=== PATIENT | female | born 1945 | race Caucasian/White ===

== ENCOUNTER 2017-12-26 14:32 | Observation (INO) | payer MEDICARE, OTHER ==
[~2017-12-26] VITALS: Ht 152.4 cm; Wt 72.6 kg
[~2017-12-26 14:32] MED LIST: AMLO1TAB53 PO; ASPI81TA31 PO; CALC-1197 PO; CLON-529 PO; FENO145T38 PO; FISH OIL 1,2001 EAC1 PO; LANS1COM PO; METF500T PO; PANT-47 PO; PIOG15TA8 PO; RED600TA PO; SPIR25TA3 PO; SYN0.075T PO
[2017-12-26 15:17] LABS: BASOPHILS # (AUTO) 0.1 X10'3 (0-0.2); BASOPHILS % (AUTO) 0.8 % (0-1); EOSINOPHILS # (AUTO) 0.2 X10'3 (0-0.9); EOSINOPHILS % (AUTO) 2.2 % (0-6); HEMATOCRIT 35.8 % (35.0-45.0); HEMOGLOBIN 12.4 g/dl (12.0-16.0); LYMPHOCYTES # (AUTO) 1.4 X10'3 (1.1-4.8); LYMPHOCYTES % (AUTO) 19.4 % (21-51); MEAN CORPUSCULAR HGB CONC 34.6 % (33.0-36.5); MEAN CORPUSCULAR VOLUME 83.7 FL (78-98); MEAN PLATELET VOLUME 8.4 FL (7.4-10.4); MONOCYTES # (AUTO) 0.6 X10'3 (0-0.9); MONOCYTES % (AUTO) 8.2 % (2-12); NEUTROPHILS # (AUTO) 5.1 X10'3 (1.8-7.7); NEUTROPHILS % (AUTO) 69.4 % (42-75); PLATELET COUNT 436 X10'3 (140-440); RED BLOOD COUNT 4.28 X10'6 (4.20-5.60); RED CELL DISTRIBUTION WIDTH 13.1 % (11.5-14.5); WHITE BLOOD COUNT 7.4 X10'3 (4.5-11.0)
[2017-12-26 15:27] LABS: INR 1.1 INR; PROTHROMBIN TIME 11.2 SECONDS (9.0-12.0)
[2017-12-26 15:35] LABS: ALANINE AMINOTRANSFERASE 32 U/L (12-78); ALBUMIN 3.9 G/DL (3.4-5.0); ALBUMIN/GLOBULIN RATIO 0.9 (1.1-1.5); ALKALINE PHOSPHATASE 33 IU/L (46-116); ANION GAP 9 (8-16); ASPARTATE AMINO TRANSFERASE 26 U/L (10-37); BILIRUBIN,TOTAL 0.6 MG/DL (0.1-1.0); BLOOD UREA NITROGEN 46 MG/DL (7-18); BUN/CREATININE RATIO 20.9 (6.6-38.0); CHLORIDE 100 MMOL/L (99-107); GLUCOSE 112 MG/DL (70-104); SODIUM 138 MMOL/L (135-145); TOTAL CARBON DIOXIDE 28.7 MMOL/L (24-32); TOTAL PROTEIN 8.1 G/DL (6.4-8.2); eGFR 22 ML/MIN
[2017-12-26 15:38] LABS: CALCIUM 13.2 MG/DL (8.5-10.1)
[2017-12-26 16:02] LABS: CLARITY,URINE CLOUDY (Clear); COLOR,URINE YELLOW (Yellow); GLUCOSE, URINE NEGATIVE (Neg); KETONES,URINE TRACE mg/dl (Neg); LEUKOCYTE ESTERASE ,URINE NEGATIVE (Neg); NITRITES, URINE NEGATIVE (Neg); OCCULT BLOOD,URINE NEGATIVE (Neg); PH,URINE 5.5 (4.8-8.0); PROTEIN,URINE 30 mg/dl (Neg); UROBILINOGEN,URINE 0.2 E.U/dL (0.2-1.0)
[2017-12-26 16:03] LABS: UA COLLECTION TYPE CLN CATCH MIDSTREAM
[2017-12-26 16:10] LABS: HYALINE CASTS >30 /LPF (NEGATIVE); SQUAMOUS EPITHELIAL CELL,UR MANY /LPF (FEW)
[2017-12-26 16:11] LABS: CAL OXALATE CRYSTALS 4+ /HPF (NEGATIVE)
[2017-12-26 16:16] LABS: BACTERIA,URINE 1+ /HPF (Neg)
[2017-12-26 16:17] LABS: RBC,URINE 0-2 /HPF (0-2); WBC,URINE 0-4 /HPF (0-4)
[2017-12-26] MEDS ORDERED: pantoprazole 40 MG vial IV ONE (19:35)
[2017-12-26] MEDS ORDERED: MESSAGE TO PHARMACY PO ONE (21:30)
[2017-12-26] MEDS ORDERED: dextrose ORAL solution 15 GM/59 ML bottle PO PRN ×2 (21:30)
[2017-12-26] MEDS ORDERED: glucagon, human recombinant 1mg kit SUBCUT PRN (21:30)
[2017-12-26] MEDS ORDERED: acetaminophen 325mg tablet PO PRN ×2 (21:30)
[2017-12-26] MEDS ORDERED: dextrose 50%-water 50ml dispensing syringe IV PRN ×2 (21:30)
[2017-12-26] MEDS ORDERED: ondansetron/PF 4mg/2ml inj IV PRN (21:30)
[2017-12-26] MEDS ORDERED: insulin Lispro (HumaLOG) vial - multi-dose SQ SCH (21:30)
[2017-12-26] MEDS: normal saline 1000ml 1,000 ML IV SCH (22:21)
[2017-12-26] MEDS: pantoprazole 40 MG vial IV SCH (22:21)
[2017-12-26 22:40] LABS: HEMOGLOBIN A1C 7.3 % (4.5-6.2)
[2017-12-27 02:00] VITALS: BP 94/65
[2017-12-27 05:00] VITALS: BP 169/49
[2017-12-27 06:16] LABS: BASOPHILS # (AUTO) 0.1 X10'3 (0-0.2); BASOPHILS % (AUTO) 1.3 % (0-1); EOSINOPHILS # (AUTO) 0.1 X10'3 (0-0.9); EOSINOPHILS % (AUTO) 2.2 % (0-6); HEMATOCRIT 33.1 % (35.0-45.0); HEMOGLOBIN 11.4 g/dl (12.0-16.0); LYMPHOCYTES # (AUTO) 1.8 X10'3 (1.1-4.8); LYMPHOCYTES % (AUTO) 33.7 % (21-51); MEAN CORPUSCULAR HEMOGLOBIN 28.6 PG (27.0-31.0); MEAN CORPUSCULAR HGB CONC 34.4 % (33.0-36.5); MEAN CORPUSCULAR VOLUME 83.1 FL (78-98); MEAN PLATELET VOLUME 8.5 FL (7.4-10.4); MONOCYTES # (AUTO) 0.6 X10'3 (0-0.9); MONOCYTES % (AUTO) 11.3 % (2-12); NEUTROPHILS # (AUTO) 2.8 X10'3 (1.8-7.7); NEUTROPHILS % (AUTO) 51.5 % (42-75); PLATELET COUNT 362 X10'3 (140-440); RED BLOOD COUNT 3.99 X10'6 (4.20-5.60); WHITE BLOOD COUNT 5.3 X10'3 (4.5-11.0)
[2017-12-27 06:35] LABS: ALBUMIN 3.4 G/DL (3.4-5.0); ANION GAP 7 (8-16); BLOOD UREA NITROGEN 45 MG/DL (7-18); BUN/CREATININE RATIO 24.2 (6.6-38.0); CALCIUM 11.4 MG/DL (8.5-10.1); CHLORIDE 105 MMOL/L (99-107); CREATININE 1.86 MG/DL (0.40-0.90); GLUCOSE 96 MG/DL (70-104); MAGNESIUM 1.2 MG/DL (1.5-2.4); PHOSPHORUS 2.8 MG/DL (2.3-4.5); POTASSIUM 4.9 MMOL/L (3.5-5.1); SODIUM 140 MMOL/L (135-145); TOTAL CARBON DIOXIDE 27.8 MMOL/L (24-32); eGFR 26 ML/MIN
[2017-12-27] MEDS: levoTHYROXINE 75mcg tablet PO SCH (08:10)
[2017-12-27] MEDS: pantoprazole 40 MG vial IV SCH (08:10)
[2017-12-27 08:20] LABS: PARATHYROID HORMONE < 3.0 PG/ML (11-67)
[2017-12-27] MEDS ORDERED: potassium Cl 20 mEq SR tablet PO PRN ×2 (08:20)
[2017-12-27] MEDS ORDERED: HYDROchlorothiazide 25mg tablet PO SCH (08:41)
[2017-12-27] MEDS: amLODIPine 5mg tablet PO SCH (09:42)
[2017-12-27] MEDS: magnesium Cl slow-release 64mg tablet PO PRN ×2 (09:43→20:46)
[2017-12-27 10:00] VITALS: BP 157/57
[2017-12-27] MEDS: normal saline 1000ml 1,000 ML IV SCH (17:20)
[2017-12-27 18:00] VITALS: BP 163/71
[2017-12-27] MEDS: cloNIDine 0.1 mg tablet PO SCH (20:40)
[2017-12-27] MEDS: pantoprazole 40mg Tablet.DR PO SCH (20:41)
[2017-12-27] MEDS ORDERED: insulin glargine (Lantus) pen - multi-dose SQ SCH (21:00)
[2017-12-27 22:00] VITALS: BP 188/65
[2017-12-28] MEDS: normal saline 1000ml 1,000 ML IV SCH (01:39)
[2017-12-28 05:00] VITALS: BP 152/59
[2017-12-28 06:42] LABS: BASOPHILS # (AUTO) 0.1 X10'3 (0-0.2); BASOPHILS % (AUTO) 0.9 % (0-1); EOSINOPHILS # (AUTO) 0.2 X10'3 (0-0.9); EOSINOPHILS % (AUTO) 3.9 % (0-6); HEMATOCRIT 35.7 % (35.0-45.0); HEMOGLOBIN 12.2 g/dl (12.0-16.0); LYMPHOCYTES # (AUTO) 2.1 X10'3 (1.1-4.8); LYMPHOCYTES % (AUTO) 33.3 % (21-51); MEAN CORPUSCULAR HEMOGLOBIN 28.7 PG (27.0-31.0); MEAN CORPUSCULAR HGB CONC 34.2 % (33.0-36.5); MEAN CORPUSCULAR VOLUME 83.9 FL (78-98); MEAN PLATELET VOLUME 8.7 FL (7.4-10.4); MONOCYTES # (AUTO) 0.6 X10'3 (0-0.9); MONOCYTES % (AUTO) 9.5 % (2-12); NEUTROPHILS # (AUTO) 3.2 X10'3 (1.8-7.7); NEUTROPHILS % (AUTO) 52.4 % (42-75); PLATELET COUNT 400 X10'3 (140-440); RED BLOOD COUNT 4.25 X10'6 (4.20-5.60); RED CELL DISTRIBUTION WIDTH 12.9 % (11.5-14.5); WHITE BLOOD COUNT 6.2 X10'3 (4.5-11.0)
[2017-12-28 07:09] LABS: ALBUMIN 3.6 G/DL (3.4-5.0); ANION GAP 9 (8-16); BLOOD UREA NITROGEN 34 MG/DL (7-18); BUN/CREATININE RATIO 21.4 (6.6-38.0); CALCIUM 9.7 MG/DL (8.5-10.1); CHLORIDE 107 MMOL/L (99-107); CREATININE 1.59 MG/DL (0.40-0.90); GLUCOSE 114 MG/DL (70-104); MAGNESIUM 1.3 MG/DL (1.5-2.4); PHOSPHORUS 2.2 MG/DL (2.3-4.5); POTASSIUM 4.3 MMOL/L (3.5-5.1); SODIUM 142 MMOL/L (135-145); TOTAL CARBON DIOXIDE 26.2 MMOL/L (24-32); eGFR 32 ML/MIN
[2017-12-28] MEDS ORDERED: AMLODIPINE PO SCH (08:00)
[2017-12-28] MEDS ORDERED: furosemide 20 MG/2 ML vial IV SCH (08:00)
[2017-12-28] MEDS ORDERED: aspirin 81mg tab.chew PO SCH (08:00)
[2017-12-28] MEDS ORDERED: fenofibrate 145mg tablet PO SCH (08:00)
[2017-12-28] MEDS ORDERED: HCTZ PO SCH (08:00)
[2017-12-28] MEDS ORDERED: VALSARTAN PO SCH (08:00)
[2017-12-28] MEDS: levoTHYROXINE 75mcg tablet PO SCH (08:01)
[2017-12-28] MEDS: pantoprazole 40mg Tablet.DR PO SCH (08:01)
[2017-12-28] MEDS: amLODIPine 5mg tablet PO SCH (08:01)
[2017-12-28] MEDS: cloNIDine 0.1 mg tablet PO SCH (08:01)
[2017-12-28] MEDS: magnesium Cl slow-release 64mg tablet PO PRN (08:02)
[2017-12-28 10:00] VITALS: BP 105/42
[2017-12-28] MEDS ORDERED: pneumococcal 23-VAL P-sac vacc 25 mcg/0.5ml vial IMVAC ONE (10:00)
[2017-12-28] MEDS ORDERED: DIO160T PO (10:40)
[2017-12-28] MEDS ORDERED: PANT40TA4 PO (10:40)
[2017-12-28] MEDS ORDERED: AMLO5TAB16 PO (10:40)
[2017-12-28] MEDS ORDERED: MAGN500C16 PO (10:43)
== END 2017-12-28 12:00 | disposition home or self-care (01) ==
LOC: ER 14:33 → ED HOLD 21:29 → ORTHO 4S 12-27 01:55
PROVIDERS: ADMIT Family Medicine; ATTEND Internal Medicine
DX: K27.9 Peptic ulcer, site unspecified, unspecified as acute or chronic, without hemorrhage or perforation (principal); R10.13 Epigastric pain; E03.9 Hypothyroidism, unspecified; E83.52 Hypercalcemia; I12.9 Hypertensive chronic kidney disease with stage 1 through stage 4 chronic kidney disease, or unspecified chronic kidney disease; E11.22 Type 2 diabetes mellitus with diabetic chronic kidney disease; N18.4 Chronic kidney disease, stage 4 (severe); E78.5 Hyperlipidemia, unspecified; E78.00 Pure hypercholesterolemia, unspecified; Z23 Encounter for immunization; Z80.9 Family history of malignant neoplasm, unspecified; Z82.49 Family history of ischemic heart disease and other diseases of the circulatory system
CPT/HCPCS: 36415; 71250; 74176; 80048; 80053; 81001; 82330; 82948; 83036; 83735; 83970; 84100; 84443; 85025; 85610; 87070; 90471; 90732; 93005; 96361; 96374; 96375; 96376; 97116; 97162; 97530; 99285; C9113; G0378; J1940; J7030; J1815

== ENCOUNTER 2020-08-19 03:52 | Inpatient (IN) | payer MEDICARE, OTHER ==
[~2020-08-19] VITALS: Ht 152.4 cm; Wt 56.6 kg
[~2020-08-19 03:52] MED LIST changes: -AMLO1TAB53 PO; +APIX5TAB3 PO; +ASPI81TA PO; -ASPI81TA31 PO; +ATOR10TA70 PO; +AZI25OT PO; -CALC-1197 PO; +CARV-50 PO; -CLON-529 PO; +CLON0.1T2 PO; +FURO40TA4 PO; +GLIP2.5T3 PO; -LANS1COM PO; +LEVO88TA2 PO; +LISI-600 PO; -METF500T PO; -PANT-47 PO; +PANT40TA54 PO; -PIOG15TA8 PO; +POTA20TA19 PO; -RED600TA PO; +SACC250C PO; +SITA100T15 PO; -SPIR25TA3 PO; -SYN0.075T PO
[2020-08-19] MEDS ORDERED: furosemide 40mg/4ml inj IV ONE (03:55)
[2020-08-19] MEDS ORDERED: ipratropium/albuterol 3ml nebule NEB ONE (03:55)
[2020-08-19] MEDS ORDERED: methylPREDNISolone sod succ 125mg/2ml vial IV ONE (03:55)
[2020-08-19] MEDS ORDERED: methylPREDNISolone sod succ 125mg/2ml vial ONE (04:04)
[2020-08-19] MEDS: nitroGLYCERIN-Tridil 50MG/D5W 250 ML IV SCH (04:15)
[2020-08-19 04:25] LABS: ABG BASE EXCESS -4.5 mmol/L (-2.0-2.0); ABG OXYGEN SATURATION 98.9 % (94-97); ABG PO2 (T) 220.3 mmHg (75.0-100.0); ALLEN'S TEST POSITIVE; FCOHb 0.1 % (0.0-3.9); FMetHb 0.1 % (0.0-1.5); FO2Hb 98.7 % (94-97); PATIENT TEMPERATURE 36.4; TOTAL HEMOGLOBIN 10.7 G/dl (12.0-16.0)
[2020-08-19 04:34] LABS: D-DIMER 2.26 MG/L FEU (0-0.50); PARTIAL THROMBOPLASTIN TIME 24 SECONDS (22-32)
[2020-08-19 04:35] LABS: BASOPHILS # (AUTO) 0.1 X10'3 (0-0.2); BASOPHILS % (AUTO) 0.8 % (0-1); EOSINOPHILS # (AUTO) 0.3 X10'3 (0-0.9); HEMATOCRIT 32.2 % (35.0-45.0); HEMOGLOBIN 10.2 g/dl (12.0-16.0); LYMPHOCYTES # (AUTO) 1.6 X10'3 (1.1-4.8); LYMPHOCYTES % (AUTO) 11.3 % (21-51); MEAN CORPUSCULAR HEMOGLOBIN 26.8 PG (27.0-31.0); MEAN CORPUSCULAR HGB CONC 31.7 g/dL (33.0-36.5); MEAN CORPUSCULAR VOLUME 84.6 FL (78-98); MONOCYTES # (AUTO) 0.9 X10'3 (0-0.9); MONOCYTES % (AUTO) 6.1 % (2-12); NEUTROPHILS # (AUTO) 11.4 X10'3 (1.8-7.7); NEUTROPHILS % (AUTO) 79.8 % (42-75); PLATELET COUNT 389 X10'3 (140-440); WHITE BLOOD COUNT 14.3 X10'3 (4.5-11.0)
[2020-08-19 04:41] LABS: ALANINE AMINOTRANSFERASE 31 U/L (12-78); ALBUMIN 3.5 G/DL (3.4-5.0); ALBUMIN/GLOBULIN RATIO 0.9 (1.1-1.5); ALKALINE PHOSPHATASE 32 IU/L (46-116); ANION GAP 13 (8-16); ASPARTATE AMINO TRANSFERASE 39 U/L (10-37); BILIRUBIN,TOTAL 0.7 MG/DL (0.1-1.0); BLOOD UREA NITROGEN 28 MG/DL (7-18); BUN/CREATININE RATIO 14.1 (6.6-38.0); CHLORIDE 104 MMOL/L (99-107); CREATININE 1.99 MG/DL (0.40-0.90); GLUCOSE 241 MG/DL (70-104); POTASSIUM 4.2 MMOL/L (3.5-5.1); SODIUM 140 MMOL/L (135-145); TOTAL CARBON DIOXIDE 23.1 MMOL/L (24-32); TOTAL PROTEIN 7.5 G/DL (6.4-8.2); eGFR 24 ML/MIN
--- NOTE | 2020-08-19 04:51 | NUR ---
PATIENTS JAMIN AGUIRRE CONTACT # [phone], GAVE HIM UPDATE
[2020-08-19 04:54] LABS: C-REACTIVE PROTEIN 4.75 MG/DL (0.0-0.5); FERRITIN 98 NG/ML (8-252); LACTATE DEHYDROGENASE 300 U/L (81-234); TROPONIN I 0.04 NG/ML (0.0-0.05)
[2020-08-19] MEDS ORDERED: CefTRIAXone/D5W-Rocephin 1gm 50 ML IV ONE (05:25)
[2020-08-19] MEDS ORDERED: ondansetron/PF 4mg/2ml inj IV PRN (05:30)
[2020-08-19] MEDS ORDERED: ipratropium/albuterol 3ml nebule NEB PRN (05:30)
[2020-08-19] MEDS ORDERED: magnesium Cl slow-release 64mg tablet PO PRN (05:30)
[2020-08-19] MEDS ORDERED: magnesium 2GM in 50ml NS 50 ML IV PRN (05:30)
[2020-08-19] MEDS ORDERED: acetaminophen 325mg tablet PO PRN ×2 (05:30)
[2020-08-19] MEDS ORDERED: magnesium 4gm in 100ml NS 100 ML IV PRN (05:30)
[2020-08-19] MEDS ORDERED: bisacodyl 10mg suppository rectal RC PRN (05:30)
[2020-08-19] MEDS ORDERED: HYDROcodone/acetaminophen 10/325mg tab PO PRN (05:30)
[2020-08-19] MEDS ORDERED: potassium CL 10mEq/100ml bag 100 ML IV PRN ×2 (05:30)
[2020-08-19] MEDS ORDERED: potassium Cl 20 mEq SR tablet PO PRN ×2 (05:30)
[2020-08-19] MEDS ORDERED: HYDROcodone/acetaminophen 5mg/325mg tablet PO PRN (05:30)
[2020-08-19] MEDS ORDERED: magnesium hydroxide 30ml (MOM) UD suspension PO PRN (05:30)
[2020-08-19] MEDS ORDERED: mag hydrox/Alum hydrox/simeth 30ml oral suspension PO PRN (05:30)
[2020-08-19 06:17] LABS: PHOSPHORUS 4.8 MG/DL (2.3-4.5)
[2020-08-19] MEDS: ipratropium/albuterol 3ml nebule NEB SCH ×4 (07:00→23:15)
[2020-08-19] MEDS: K and/or MAG REPLACEMENT MC SCH ×2 (08:00→20:00)
[2020-08-19] MEDS: methylPREDNISolone sod succ 125mg/2ml vial IV SCH ×3 (10:06→21:22)
[2020-08-19] MEDS: furosemide 40mg/4ml inj IV SCH ×2 (10:07→21:22)
[2020-08-19] MEDS ORDERED: POTA20TA19 PO (12:26)
[2020-08-19] MEDS ORDERED: CLON0.1T PO (12:26)
[2020-08-19] MEDS ORDERED: FURO40TA4 PO (12:26)
[2020-08-19] MEDS ORDERED: APIX5TAB3 PO (12:26)
[2020-08-19] MEDS ORDERED: PANT-47 PO (12:26)
[2020-08-19] MEDS ORDERED: LISI-600 PO (12:26)
--- NOTE | 2020-08-19 12:26 | NUR ---
I have reviewed and agree with all medications administered and interventions performed by PRESSURE WELDER Student(fill in Student's name)
--- NOTE | 2020-08-19 12:31 | NUR ---
RT STUDENTS NAME IS SERA SALAZAR
--- NOTE | 2020-08-19 12:54 | NUR ---
Spoke to Dr. Gibbons about patient VS and POC. Dr. Gibbons with
[2020-08-19] MEDS ORDERED: cloNIDine 0.1 mg tablet PO PRN (13:10)
--- NOTE | 2020-08-19 13:24 | NUR ---
per dr spaulding, stop the nitroglycerin drip
[2020-08-19] MEDS ORDERED: LORazepam 0.5 MG tablet PO PRN (14:05)
[2020-08-19] MEDS ORDERED: LORazepam 2 mg/ml vial IV PRN (14:05)
--- NOTE | 2020-08-19 14:54 | NUR ---
TRIED TO GIVE REPORT, THE RN IS NOT READY AT THIS TIME WILL CALL BACK
--- NOTE | 2020-08-19 15:30 | NUR ---
Report recieved by Demetri ANDERSEN. Patient brought up with RT and ER nurse. Patient ambulated from [facility] using a can and assistance from 1 nurse. Patient ambulated without oxygen and subsequently placed onto 3L. Vital signs read 193/73, 91hr, 99% on 3l, 18 respirations, no pain. 2 RN skin check performed. MRSA swab given.
[2020-08-19 16:00] VITALS: BP 193/73
[2020-08-19] MEDS ORDERED: nitroGLYCERIN-Tridil 50MG/D5W 250 ML IV SCH (17:10)
[2020-08-19 18:00] VITALS: BP 201/73
--- NOTE | 2020-08-19 18:11 | NUR ---
Problems reprioritized. Patient report given, questions answered & plan of care reviewed with NATHALY Mejia.
[2020-08-19 18:25] LABS: ABG BASE EXCESS -0.1 mmol/L (-2.0-2.0); ABG HCO3 25.2 mmol/L (22.0-26.0); ABG OXYGEN SATURATION 86.6 % (94-97); ABG PCO2 (T) 43.9 mmHg (32.0-45.0); ABG PO2 (T) 52.9 mmHg (75.0-100.0); ALLEN'S TEST NEGATIVE; FCOHb 0.3 % (0.0-3.9); FLOW 3 L/min; FMetHb 0.2 % (0.0-1.5); FO2Hb 86.2 % (94-97)
[2020-08-19] MEDS ORDERED: enoxaparin 30mg/0.3ml syringe SUBCUT SCH (20:00)
[2020-08-19] MEDS ORDERED: temazepam 15mg capsule PO PRN (21:00)
[2020-08-19] MEDS: apixaban 5mg tablet PO SCH (21:21)
[2020-08-19] MEDS: carVEDilol 12.5mg tablet PO SCH (21:22)
[2020-08-19 22:00] VITALS: BP 188/53
[2020-08-19] MEDS ORDERED: glucagon, human recombinant 1mg kit SUBCUT PRN (22:35)
[2020-08-19] MEDS ORDERED: dextrose ORAL solution 15 GM/59 ML bottle PO PRN ×2 (22:35)
[2020-08-19] MEDS ORDERED: dextrose 50%-water 50ml dispensing syringe IV PRN ×2 (22:35)
[2020-08-20] VITALS (13 sets, daily range): BP systolic 105–185; BP diastolic 42–103
[2020-08-20] MEDS: insulin glargine (Lantus) pen - multi-dose SQ SCH ×2 (00:07→21:01)
[2020-08-20] MEDS: insulin Lispro (HumaLOG) vial - multi-dose SQ SCH ×3 (00:09→14:22)
[2020-08-20] MEDS: ipratropium/albuterol 3ml nebule NEB SCH ×6 (03:04→23:00)
[2020-08-20] MEDS: methylPREDNISolone sod succ 125mg/2ml vial IV SCH ×4 (03:54→20:53)
[2020-08-20 06:04] LABS: BASOPHILS % (AUTO) 0.1 % (0-1); EOSINOPHILS % (AUTO) 0 % (0-6); HEMATOCRIT 27.3 % (35.0-45.0); LYMPHOCYTES # (AUTO) 0.4 X10'3 (1.1-4.8); LYMPHOCYTES % (AUTO) 4.3 % (21-51); MEAN CORPUSCULAR HEMOGLOBIN 27.5 PG (27.0-31.0); MEAN CORPUSCULAR HGB CONC 32.9 g/dL (33.0-36.5); MEAN CORPUSCULAR VOLUME 83.7 FL (78-98); MEAN PLATELET VOLUME 8.9 FL (7.4-10.4); MONOCYTES # (AUTO) 0.3 X10'3 (0-0.9); MONOCYTES % (AUTO) 3.6 % (2-12); NEUTROPHILS # (AUTO) 7.6 X10'3 (1.8-7.7); PLATELET COUNT 295 X10'3 (140-440); RED BLOOD COUNT 3.27 X10'6 (4.20-5.60); RED CELL DISTRIBUTION WIDTH 14.5 % (11.5-14.5); WHITE BLOOD COUNT 8.3 X10'3 (4.5-11.0)
[2020-08-20 06:15] LABS: ALANINE AMINOTRANSFERASE 24 U/L (12-78); ALBUMIN/GLOBULIN RATIO 0.8 (1.1-1.5); ALKALINE PHOSPHATASE 27 IU/L (46-116); ANION GAP 12 (8-16); ASPARTATE AMINO TRANSFERASE 21 U/L (10-37); BILIRUBIN,TOTAL 0.3 MG/DL (0.1-1.0); BLOOD UREA NITROGEN 44 MG/DL (7-18); BUN/CREATININE RATIO 19.4 (6.6-38.0); CALCIUM 9.2 MG/DL (8.5-10.1); CHLORIDE 105 MMOL/L (99-107); CHOL/HDL RATIO 3.4 (0.00-4.99); CHOLESTEROL 141 MG/DL (0-200); CREATININE 2.27 MG/DL (0.40-0.90); GLUCOSE 219 MG/DL (70-104); HDL CHOLESTEROL 41 MG/DL (35-60); LDL CHOLESTEROL 81 MG/DL (50-100); MAGNESIUM 1.8 MG/DL (1.5-2.4); POTASSIUM 4.1 MMOL/L (3.5-5.1); SODIUM 144 MMOL/L (135-145); TOTAL CARBON DIOXIDE 27.3 MMOL/L (24-32); TOTAL PROTEIN 6.8 G/DL (6.4-8.2); TRIGLYCERIDES 88 MG/DL (20-135); eGFR 21 ML/MIN
[2020-08-20] MEDS: aspirin 81mg tab.chew PO SCH (07:24)
[2020-08-20] MEDS: levoTHYROXINE 88mcg tablet PO SCH (07:24)
[2020-08-20] MEDS: furosemide 40mg/4ml inj IV SCH ×2 (07:24→20:54)
[2020-08-20] MEDS: CefTRIAXone/D5W-Rocephin 1gm 50 ML IV SCH (07:24)
[2020-08-20] MEDS: carVEDilol 12.5mg tablet PO SCH ×2 (07:25→20:56)
[2020-08-20] MEDS: pantoprazole 40mg Tablet.DR PO SCH (07:25)
[2020-08-20] MEDS: atorvastatin 10mg tablet PO SCH (07:25)
[2020-08-20] MEDS: apixaban 5mg tablet PO SCH ×2 (07:25→20:56)
[2020-08-20] MEDS: lisinopril 20mg tablet PO SCH (07:26)
[2020-08-20] MEDS: K and/or MAG REPLACEMENT MC SCH ×2 (08:00→20:00)
--- NOTE | 2020-08-20 16:58 | NUR ---
PAGER ID: [phone] MESSAGE: Junaid, N [id number] : patient has been paced with HR in the 60s all day. she just now went into Afib with RVR with a HR in the 170s.... any new orders? thanks! 1957
[2020-08-20] MEDS ORDERED: diltiazem-NS 100mg/100ml 125 ML IV SCH (17:00)
[2020-08-20] MEDS ORDERED: diltiazem-D5W 125mg/125ml 125 ML IV SCH (17:05)
[2020-08-20] MEDS ORDERED: diltiazem-NS 100mg/100ml 100 ML IV SCH (17:07)
[2020-08-20] MEDS: hyDRALAzine 10mg tablet PO SCH ×2 (17:34→23:57)
--- NOTE | 2020-08-20 18:13 | NUR ---
Problems reprioritized. Patient report given, questions answered & plan of care reviewed with Ramon RN.
--- NOTE | 2020-08-20 18:30 | NUR ---
Patient in room PCU 3025. I have received report from Jumana ANDERSEN and had the opportunity to ask questions and assume patient care.
--- NOTE | 2020-08-20 19:07 | NUR ---
INSULIN NOT GIVEN pt BS pre dinner was 132, pt is a level 4, no correctional coverage needed per protocol. no tray is present at bedside nor is a food slip, pt does not remember how much she ate. no insulin will be given at this time, as nutritional needs can not be determined.
[2020-08-20] MEDS: lactobacillus rhamnosus 10,000 MMU CELLS/CAPSULE PO SCH (20:56)
[2020-08-20] MEDS ORDERED: insulin glargine (Lantus) pen - multi-dose SQ SCH (21:00)
[2020-08-21] VITALS (12 sets, daily range): BP systolic 136–190; BP diastolic 52–114
[2020-08-21] MEDS: ipratropium/albuterol 3ml nebule NEB SCH ×3 (03:00→11:00)
[2020-08-21] MEDS: nitroGLYCERIN-Tridil 50MG/D5W 250 ML IV SCH (04:05)
--- NOTE | 2020-08-21 06:18 | NUR ---
Patient in room PCU 3025. I have received report from NATHALY Navarro and had the opportunity to ask questions and assume patient care.
--- NOTE | 2020-08-21 06:19 | NUR ---
Problems reprioritized. Patient report given, questions answered & plan of care reviewed with Chavez ANDERSEN.
[2020-08-21 06:30] LABS: BASOPHILS % (AUTO) 0.1 % (0-1); EOSINOPHILS % (AUTO) 0 % (0-6); HEMATOCRIT 27.6 % (35.0-45.0); HEMOGLOBIN 9.2 g/dl (12.0-16.0); LYMPHOCYTES # (AUTO) 0.4 X10'3 (1.1-4.8); LYMPHOCYTES % (AUTO) 3.1 % (21-51); MEAN CORPUSCULAR HEMOGLOBIN 27.7 PG (27.0-31.0); MEAN CORPUSCULAR HGB CONC 33.1 g/dL (33.0-36.5); MEAN CORPUSCULAR VOLUME 83.4 FL (78-98); MEAN PLATELET VOLUME 8.9 FL (7.4-10.4); MONOCYTES # (AUTO) 0.3 X10'3 (0-0.9); MONOCYTES % (AUTO) 2.1 % (2-12); NEUTROPHILS # (AUTO) 11.5 X10'3 (1.8-7.7); NEUTROPHILS % (AUTO) 94.7 % (42-75); PLATELET COUNT 337 X10'3 (140-440); RED BLOOD COUNT 3.31 X10'6 (4.20-5.60); RED CELL DISTRIBUTION WIDTH 14.4 % (11.5-14.5); WHITE BLOOD COUNT 12.1 X10'3 (4.5-11.0)
[2020-08-21 06:40] LABS: ALANINE AMINOTRANSFERASE 36 U/L (12-78); ALBUMIN 3.1 G/DL (3.4-5.0); ALBUMIN/GLOBULIN RATIO 0.8 (1.1-1.5); ALKALINE PHOSPHATASE 32 IU/L (46-116); ANION GAP 11 (8-16); ASPARTATE AMINO TRANSFERASE 29 U/L (10-37); BILIRUBIN,TOTAL 0.3 MG/DL (0.1-1.0); BLOOD UREA NITROGEN 64 MG/DL (7-18); BUN/CREATININE RATIO 26.8 (6.6-38.0); CALCIUM 9.2 MG/DL (8.5-10.1); CHLORIDE 106 MMOL/L (99-107); CREATININE 2.39 MG/DL (0.40-0.90); GLUCOSE 243 MG/DL (70-104); MAGNESIUM 1.9 MG/DL (1.5-2.4); POTASSIUM 3.6 MMOL/L (3.5-5.1); SODIUM 145 MMOL/L (135-145); TOTAL CARBON DIOXIDE 28.1 MMOL/L (24-32); eGFR 20 ML/MIN
[2020-08-21] MEDS: K and/or MAG REPLACEMENT MC SCH (07:20)
--- NOTE | 2020-08-21 07:31 | NUR ---
PAGER ID: [phone] MESSAGE: [id number] Lay Murray has converted to sinus rhythm. NATHALY Byrne Ext [phone]
[2020-08-21] MEDS: pantoprazole 40mg Tablet.DR PO SCH (08:36)
[2020-08-21] MEDS: apixaban 5mg tablet PO SCH (08:36)
[2020-08-21] MEDS: aspirin 81mg tab.chew PO SCH (08:36)
[2020-08-21] MEDS: lactobacillus rhamnosus 10,000 MMU CELLS/CAPSULE PO SCH (08:36)
[2020-08-21] MEDS: hyDRALAzine 10mg tablet PO SCH (08:36)
[2020-08-21] MEDS: lisinopril 20mg tablet PO SCH (08:37)
[2020-08-21] MEDS: carVEDilol 12.5mg tablet PO SCH (08:37)
[2020-08-21] MEDS: atorvastatin 10mg tablet PO SCH (08:37)
[2020-08-21] MEDS: levoTHYROXINE 88mcg tablet PO SCH (08:37)
[2020-08-21] MEDS: methylPREDNISolone sod succ 125mg/2ml vial IV SCH (08:40)
[2020-08-21] MEDS: furosemide 40mg/4ml inj IV SCH (08:40)
[2020-08-21] MEDS: insulin Lispro (HumaLOG) vial - multi-dose SQ SCH ×2 (08:55→13:26)
[2020-08-21] MEDS: CefTRIAXone/D5W-Rocephin 1gm 50 ML IV SCH (09:54)
[2020-08-21] MEDS ORDERED: hyDRALAzine tablet PO (10:29)
[2020-08-21] MEDS ORDERED: ALPR1TAB2 PO (10:31)
--- NOTE | 2020-08-21 10:39 | NUR ---
PAGER ID: [phone] MESSAGE: [id number] Lay Ahujahip: BP still high at 182/46 despite Clonidine given 1 hour ago. NATHALY Byrne Ext [phone] Addendum: 08/21/20 at 1045 by Chavez Lamb RN Per Edwige, "Patient had this problem before in 2018, patient is very anxious and I put 2 new medications for her to take. She needs to monitor her blood pressure at home but she is good to DC."
[2020-08-21] MEDS ORDERED: CLON0.1T PO (12:11)
--- NOTE | 2020-08-21 12:13 | NUR ---
PAGER ID: [phone] MESSAGE: [id number] Lay Quiroga will need the written Xanax script from you. NATHALY Byrne Ext [phone]
--- NOTE | 2020-08-21 14:58 | NUR ---
Discharged. Safe for DC per Dr Gibbons. PIV off. Educated on follow-up especially for CHF because her PCP office was closed. Educated on meds, CHF and DM survival skills. Patient wheeled down to and took home.
== END 2020-08-21 13:40 | disposition home or self-care (01) | DRG 291 ==
LOC: ER 03:52 → ED HOLD 05:26 → PCU 3S 16:21
PROVIDERS: ADMIT Family Medicine; ATTEND Internal Medicine
PROC: 5A09357 Assistance with Respiratory Ventilation, Less than 24 Consecutive Hours, Continuous Positive Airway Pressure (ICD-10-PCS; principal; 2020-08-19)
PROC: 5A09357 Assistance with Respiratory Ventilation, Less than 24 Consecutive Hours, Continuous Positive Airway Pressure (ICD-10-PCS; 2020-08-21)
DX: I13.0 Hypertensive heart and chronic kidney disease with heart failure and stage 1 through stage 4 chronic kidney disease, or unspecified chronic kidney disease (principal); J96.01 Acute respiratory failure with hypoxia; I50.23 Acute on chronic systolic (congestive) heart failure; N18.4 Chronic kidney disease, stage 4 (severe); I25.10 Atherosclerotic heart disease of native coronary artery without angina pectoris; I16.0 Hypertensive urgency; Z20.828 Contact with and (suspected) exposure to other viral communicable diseases; Z88.8 Allergy status to other drugs, medicaments and biological substances; Z91.040 Latex allergy status; E78.00 Pure hypercholesterolemia, unspecified; E03.9 Hypothyroidism, unspecified; Z87.11 Personal history of peptic ulcer disease; Z85.51 Personal history of malignant neoplasm of bladder; D72.829 Elevated white blood cell count, unspecified; Z79.01 Long term (current) use of anticoagulants; Z95.0 Presence of cardiac pacemaker; I48.91 Unspecified atrial fibrillation; F41.9 Anxiety disorder, unspecified; E78.5 Hyperlipidemia, unspecified; E11.22 Type 2 diabetes mellitus with diabetic chronic kidney disease; M19.90 Unspecified osteoarthritis, unspecified site
CPT/HCPCS: 36415; 36600; 71045; 80053; 80061; 82728; 82803; 82948; 83605; 83615; 83735; 83880; 84100; 84145; 84443; 84484; 85018; 85025; 85379; 85384; 85610; 85730; 86140; 87040; 87081; 87635; 93005; 94640; 94660; 94760; 96374; 96375; 97161; 97530; 99291; A9539; A9540; C9803; G0378; J0696; J1815; J1940; J2930; J3490

== ENCOUNTER 2020-09-02 17:30 | Emergency (ER) | payer MEDICARE, OTHER ==
[~2020-09-02] VITALS: Ht 152.4 cm; Wt 61.4 kg
[~2020-09-02 17:30] MED LIST changes: +ALPR1TAB2 PO; -AZI25OT PO; +CLON0.1T PO; -CLON0.1T2 PO; +PANT-47 PO; -PANT40TA54 PO; +hyDRALAzine tablet PO
[2020-09-02 18:10] LABS: BASOPHILS # (AUTO) 0.1 X10'3 (0-0.2); BASOPHILS % (AUTO) 1.3 % (0-1); EOSINOPHILS # (AUTO) 0.4 X10'3 (0-0.9); EOSINOPHILS % (AUTO) 5.9 % (0-6); HEMATOCRIT 28.8 % (35.0-45.0); HEMOGLOBIN 9.6 g/dl (12.0-16.0); LYMPHOCYTES % (AUTO) 13.2 % (21-51); MEAN CORPUSCULAR HEMOGLOBIN 27.5 PG (27.0-31.0); MEAN CORPUSCULAR HGB CONC 33.3 g/dL (33.0-36.5); MEAN CORPUSCULAR VOLUME 82.6 FL (78-98); MEAN PLATELET VOLUME 8.4 FL (7.4-10.4); MONOCYTES # (AUTO) 0.6 X10'3 (0-0.9); MONOCYTES % (AUTO) 8.8 % (2-12); NEUTROPHILS # (AUTO) 5.2 X10'3 (1.8-7.7); NEUTROPHILS % (AUTO) 70.8 % (42-75); PLATELET COUNT 287 X10'3 (140-440); RED BLOOD COUNT 3.48 X10'6 (4.20-5.60); RED CELL DISTRIBUTION WIDTH 14.1 % (11.5-14.5); WHITE BLOOD COUNT 7.3 X10'3 (4.5-11.0)
[2020-09-02 18:24] LABS: ALANINE AMINOTRANSFERASE 31 U/L (12-78); ALBUMIN 3.3 G/DL (3.4-5.0); ALBUMIN/GLOBULIN RATIO 0.9 (1.1-1.5); ALKALINE PHOSPHATASE 49 IU/L (46-116); ANION GAP 12 (8-16); ASPARTATE AMINO TRANSFERASE 20 U/L (10-37); BILIRUBIN,TOTAL 0.3 MG/DL (0.1-1.0); BLOOD UREA NITROGEN 34 MG/DL (7-18); BUN/CREATININE RATIO 15.9 (6.6-38.0); CALCIUM 8.7 MG/DL (8.5-10.1); CHLORIDE 109 MMOL/L (99-107); CREATININE 2.14 MG/DL (0.40-0.90); GLUCOSE 219 MG/DL (70-104); POTASSIUM 3.7 MMOL/L (3.5-5.1); SODIUM 144 MMOL/L (135-145); TOTAL CARBON DIOXIDE 23.5 MMOL/L (24-32); TOTAL PROTEIN 6.9 G/DL (6.4-8.2); eGFR 22 ML/MIN
--- NOTE | 2020-09-02 18:45 | NUR ---
DR HAMILTON NOTIFIED OF HTN NO NEW ORDERS
--- NOTE | 2020-09-02 19:51 | NUR ---
[facility] TRANSMISSION ATTACHED AND ILLUMINATED
--- NOTE | 2020-09-02 20:18 | NUR ---
Lesley from [facility] called gathering RVR episode precipiateted because of atrium.
--- NOTE | 2020-09-02 20:19 | NUR ---
Payam call transferred to Dr Lynn
[2020-09-02] MEDS ORDERED: diltiazem 30mg tablet PO ONE (20:45)
--- NOTE | 2020-09-02 21:33 | NUR ---
LEAH ZHAO TO WAIT TO HEAR FROM CARDIOLOGY Addendum: 09/02/20 at 2133 by SADIA PATIENT
[2020-09-02] MEDS ORDERED: magnesium oxide 400mg tablet PO ONE (21:35)
[2020-09-02 21:47] LABS: MAGNESIUM 1.3 MG/DL (1.5-2.4)
[2020-09-02 21:52] VITALS: BP 199/75
== END 2020-09-02 21:54 | disposition home or self-care (01) ==
LOC: ER 17:31
DX: I50.9 Heart failure, unspecified (principal); Z45.018 Encounter for adjustment and management of other part of cardiac pacemaker; R77.8 Other specified abnormalities of plasma proteins; D53.9 Nutritional anemia, unspecified; N18.9 Chronic kidney disease, unspecified; I10 Essential (primary) hypertension; E78.00 Pure hypercholesterolemia, unspecified; E11.9 Type 2 diabetes mellitus without complications; E07.9 Disorder of thyroid, unspecified; F29 Unspecified psychosis not due to a substance or known physiological condition; Z88.2 Allergy status to sulfonamides; Z88.8 Allergy status to other drugs, medicaments and biological substances; Z79.899 Other long term (current) drug therapy; Z79.82 Long term (current) use of aspirin
CPT/HCPCS: 36415; 71045; 80053; 83735; 83880; 84484; 85025; 93005; 99285

== ENCOUNTER 2020-09-04 13:42 | Inpatient (IN) | payer MEDICARE, OTHER ==
[~2020-09-04] VITALS: Ht 152.4 cm; Wt 61.4 kg
[2020-09-04 14:15] LABS: BASOPHILS # (AUTO) 0.1 X10'3 (0-0.2); BASOPHILS % (AUTO) 0.6 % (0-1); EOSINOPHILS # (AUTO) 0.2 X10'3 (0-0.9); EOSINOPHILS % (AUTO) 2.2 % (0-6); HEMATOCRIT 29.4 % (35.0-45.0); HEMOGLOBIN 9.9 g/dl (12.0-16.0); LYMPHOCYTES # (AUTO) 0.7 X10'3 (1.1-4.8); LYMPHOCYTES % (AUTO) 7.4 % (21-51); MEAN CORPUSCULAR HEMOGLOBIN 27.5 PG (27.0-31.0); MEAN CORPUSCULAR HGB CONC 33.5 g/dL (33.0-36.5); MEAN PLATELET VOLUME 8.2 FL (7.4-10.4); MONOCYTES # (AUTO) 0.6 X10'3 (0-0.9); MONOCYTES % (AUTO) 6.3 % (2-12); NEUTROPHILS # (AUTO) 8.4 X10'3 (1.8-7.7); NEUTROPHILS % (AUTO) 83.5 % (42-75); PLATELET COUNT 286 X10'3 (140-440); RED BLOOD COUNT 3.59 X10'6 (4.20-5.60); RED CELL DISTRIBUTION WIDTH 13.8 % (11.5-14.5); WHITE BLOOD COUNT 10.1 X10'3 (4.5-11.0)
[2020-09-04 14:30] LABS: ALANINE AMINOTRANSFERASE 27 U/L (12-78); ALBUMIN 3.2 G/DL (3.4-5.0); ALBUMIN/GLOBULIN RATIO 0.9 (1.1-1.5); ALKALINE PHOSPHATASE 31 IU/L (46-116); ANION GAP 9 (8-16); ASPARTATE AMINO TRANSFERASE 22 U/L (10-37); BILIRUBIN,TOTAL 0.6 MG/DL (0.1-1.0); BLOOD UREA NITROGEN 20 MG/DL (7-18); BUN/CREATININE RATIO 11.9 (6.6-38.0); CALCIUM 9.4 MG/DL (8.5-10.1); CHLORIDE 108 MMOL/L (99-107); CREATININE 1.68 MG/DL (0.40-0.90); GLUCOSE 160 MG/DL (70-104); POTASSIUM 3.7 MMOL/L (3.5-5.1); SODIUM 143 MMOL/L (135-145); TOTAL CARBON DIOXIDE 26.1 MMOL/L (24-32); TOTAL PROTEIN 6.9 G/DL (6.4-8.2); eGFR 30 ML/MIN
--- NOTE | 2020-09-04 15:34 | NUR ---
DR. RICHMOND ANSWERING SERVICE CONTACTED AT [phone], INFORMED THAT THEY WOULD PUT IN A PAGE FOR HIM TO CONTACT THE ED MD.
[2020-09-04] MEDS ORDERED: furosemide 40mg/4ml inj IV ONE (16:05)
[2020-09-04] MEDS ORDERED: HYDROcodone/acetaminophen 5mg/325mg tablet PO PRN (17:05)
[2020-09-04] MEDS ORDERED: diphenhydrAMINE 25mg capsule PO PRN (17:05)
[2020-09-04] MEDS ORDERED: insulin Lispro (HumaLOG) vial - multi-dose SQ SCH (17:05)
[2020-09-04] MEDS ORDERED: ipratropium/albuterol 3ml nebule NEB PRN (17:05)
[2020-09-04] MEDS ORDERED: magnesium 2GM in 50ml NS 50 ML IV PRN (17:05)
[2020-09-04] MEDS ORDERED: ondansetron/PF 4mg/2ml inj IV PRN (17:05)
[2020-09-04] MEDS ORDERED: glucagon, human recombinant 1mg kit SUBCUT PRN (17:05)
[2020-09-04] MEDS ORDERED: magnesium 4gm in 100ml NS 100 ML IV PRN (17:05)
[2020-09-04] MEDS ORDERED: acetaminophen 325mg tablet PO PRN ×2 (17:05)
[2020-09-04] MEDS ORDERED: HYDROcodone/acetaminophen 10/325mg tab PO PRN (17:05)
[2020-09-04] MEDS ORDERED: potassium CL 10mEq/100ml bag 100 ML IV PRN ×2 (17:05)
[2020-09-04] MEDS ORDERED: potassium Cl 20 mEq SR tablet PO PRN (17:05)
[2020-09-04] MEDS ORDERED: dextrose ORAL solution 15 GM/59 ML bottle PO PRN ×2 (17:05)
[2020-09-04] MEDS ORDERED: acetaminophen 650mg rectal suppository RC PRN (17:05)
[2020-09-04] MEDS ORDERED: morphine 2 MG/ML inj. syringe IV PRN ×2 (17:05)
[2020-09-04] MEDS ORDERED: dextrose 50%-water 50ml dispensing syringe IV PRN ×2 (17:05)
[2020-09-04] MEDS ORDERED: magnesium hydroxide 30ml (MOM) UD suspension PO PRN (17:05)
[2020-09-04] MEDS ORDERED: MESSAGE TO PHARMACY PO ONE (17:05)
[2020-09-04] MEDS ORDERED: bisacodyl 10mg suppository rectal RC PRN (17:05)
[2020-09-04] MEDS ORDERED: mag hydrox/Alum hydrox/simeth 30ml oral suspension PO PRN (17:05)
--- NOTE | 2020-09-04 17:32 | NUR ---
PAGED DR. OLIVAREZ MADE AWARE PATIENT'S BP ON HIGH SIDE,REQUEST FOR PRN MED.NOW 210/78MMHG.DENIES SYMPTOMS.
[2020-09-04 17:35] LABS: CLARITY,URINE CLEAR (Clear); COLOR,URINE YELLOW (Yellow); GLUCOSE, URINE NEGATIVE (Neg); KETONES,URINE NEGATIVE (Neg); LEUKOCYTE ESTERASE ,URINE NEGATIVE (Neg); NITRITES, URINE NEGATIVE (Neg); OCCULT BLOOD,URINE NEGATIVE (Neg); PROTEIN,URINE NEGATIVE (Neg); UROBILINOGEN,URINE 0.2 E.U/dL (0.2-1.0)
[2020-09-04 17:38] LABS: UA COLLECTION TYPE CLN CATCH MIDSTREAM
[2020-09-04] MEDS ORDERED: hydrALAZINE 20mg/ml inj. IV STA (17:41)
[2020-09-04] MEDS ORDERED: hydrALAZINE 20mg/ml inj. IV PRN (17:45)
[2020-09-04] MEDS ORDERED: FURO-150 PO (18:22)
[2020-09-04] MEDS ORDERED: CLON-529 PO (18:22)
[2020-09-04] MEDS ORDERED: PANT40TA54 PO (18:22)
[2020-09-04] MEDS ORDERED: SACC250C PO (18:22)
--- NOTE | 2020-09-04 18:39 | NUR ---
UNKNOWN ACCEPTING RN AT THIS TIME,CALLED PCU SPOKE WITH GRACE.
--- NOTE | 2020-09-04 18:47 | NUR ---
Patient in room ED 6. I have received report from Pj ANDERSEN and had the opportunity to ask questions and assume patient care.
--- NOTE | 2020-09-04 18:50 | NUR ---
armband placed per code status.
[2020-09-04] MEDS ORDERED: cloNIDine 0.1 mg tablet PO PRN (18:55)
--- NOTE | 2020-09-04 18:55 | NUR ---
PATIENT ALERTED STAFF THAT HER DEFRIBRILATOR WENT OFF AT 1805 AND 1855.
--- NOTE | 2020-09-04 19:18 | NUR ---
PAGER ID: [phone] MESSAGE: [id number] Lay Quiroga. Just spoke to pt about code status. pt wishes to be DNR. ER put DNR band on her already. can we have the code status. -Amador ANDERSEN [phone]
[2020-09-04 19:55] VITALS: BP 169/98
[2020-09-04 20:00] VITALS: BP_SYST 129; BP_SYST 157; BP_SYST 170; BP_DIAS 45; BP_DIAS 59; BP_DIAS 63
[2020-09-04] MEDS: K and/or MAG REPLACEMENT MC SCH (20:00)
[2020-09-04] MEDS: SACCHAROMYCES BOULARDII 250 MG PO SCH (20:00)
[2020-09-04] MEDS ORDERED: apixaban 5mg tablet PO SCH (20:00)
[2020-09-04] MEDS: heparin, porcine 5000 units/ml vial SQ SCH (20:06)
[2020-09-04] MEDS: furosemide 10 MG/1 ML 10ml inj IV SCH (20:06)
[2020-09-04] MEDS: carVEDilol 12.5mg tablet PO SCH (20:07)
[2020-09-04] MEDS: pantoprazole 40mg Tablet.DR PO SCH (20:07)
[2020-09-04] MEDS: insulin glargine (Lantus) pen - multi-dose SQ SCH (21:00)
--- NOTE | 2020-09-04 21:20 | NUR ---
Medication: Joe... Spoke to pharmacy and stated that the medication is going to be brought from home. medication non-admit d/t medication currently not delivered.
[2020-09-04 22:00] VITALS: BP 165/67
[2020-09-05] VITALS (7 sets, daily range): BP systolic 127–179; BP diastolic 32–77
[2020-09-05 02:20] LABS: BASOPHILS # (AUTO) 0.1 X10'3 (0-0.2); BASOPHILS % (AUTO) 1.5 % (0-1); EOSINOPHILS # (AUTO) 0.2 X10'3 (0-0.9); EOSINOPHILS % (AUTO) 1.9 % (0-6); HEMATOCRIT 33.6 % (35.0-45.0); HEMOGLOBIN 10.9 g/dl (12.0-16.0); LYMPHOCYTES # (AUTO) 0.8 X10'3 (1.1-4.8); LYMPHOCYTES % (AUTO) 8.5 % (21-51); MEAN CORPUSCULAR HEMOGLOBIN 26.4 PG (27.0-31.0); MEAN CORPUSCULAR HGB CONC 32.4 g/dL (33.0-36.5); MEAN CORPUSCULAR VOLUME 81.4 FL (78-98); MEAN PLATELET VOLUME 8.4 FL (7.4-10.4); MONOCYTES # (AUTO) 0.6 X10'3 (0-0.9); MONOCYTES % (AUTO) 6.6 % (2-12); NEUTROPHILS # (AUTO) 7.4 X10'3 (1.8-7.7); NEUTROPHILS % (AUTO) 81.5 % (42-75); PLATELET COUNT 323 X10'3 (140-440); RED BLOOD COUNT 4.13 X10'6 (4.20-5.60); RED CELL DISTRIBUTION WIDTH 14.2 % (11.5-14.5); WHITE BLOOD COUNT 9.1 X10'3 (4.5-11.0)
[2020-09-05 02:32] LABS: ALANINE AMINOTRANSFERASE 29 U/L (12-78); ALBUMIN 3.5 G/DL (3.4-5.0); ALBUMIN/GLOBULIN RATIO 0.9 (1.1-1.5); ALKALINE PHOSPHATASE 35 IU/L (46-116); ANION GAP 12 (8-16); ASPARTATE AMINO TRANSFERASE 23 U/L (10-37); BILIRUBIN,TOTAL 0.7 MG/DL (0.1-1.0); BLOOD UREA NITROGEN 23 MG/DL (7-18); BUN/CREATININE RATIO 13.6 (6.6-38.0); CALCIUM 9.8 MG/DL (8.5-10.1); CHLORIDE 105 MMOL/L (99-107); CHOL/HDL RATIO 4.4 (0.00-4.99); CHOLESTEROL 164 MG/DL (0-200); CREATININE 1.69 MG/DL (0.40-0.90); GLUCOSE 137 MG/DL (70-104); HDL CHOLESTEROL 37 MG/DL (35-60); LDL CHOLESTEROL 103 MG/DL (50-100); MAGNESIUM 1.4 MG/DL (1.5-2.4); PHOSPHORUS 3.5 MG/DL (2.3-4.5); SODIUM 144 MMOL/L (135-145); TOTAL CARBON DIOXIDE 26.6 MMOL/L (24-32); TOTAL PROTEIN 7.5 G/DL (6.4-8.2); TRIGLYCERIDES 127 MG/DL (20-135); eGFR 29 ML/MIN
[2020-09-05] MEDS: potassium Cl 20 mEq SR tablet PO PRN ×3 (04:09→11:59)
--- NOTE | 2020-09-05 06:30 | NUR ---
Patient in room PCU 3026. I have received report from NATHALY WHITE and had the opportunity to ask questions and assume patient care.
--- NOTE | 2020-09-05 07:00 | NUR ---
Problems reprioritized. Patient report given, questions answered & plan of care reviewed with Miguelito RN.
[2020-09-05] MEDS: SACCHAROMYCES BOULARDII 250 MG PO SCH ×2 (08:00→20:00)
[2020-09-05] MEDS: furosemide 10 MG/1 ML 10ml inj IV SCH ×2 (08:13→19:34)
[2020-09-05] MEDS: aspirin 81mg tab.chew PO SCH (08:14)
[2020-09-05] MEDS: carVEDilol 12.5mg tablet PO SCH ×2 (08:15→19:34)
[2020-09-05] MEDS: OMEGA-3/DHA/EPA/FISH OIL 1 EACH CAPSULE.DR PO SCH (08:15)
[2020-09-05] MEDS: atorvastatin 10mg tablet PO SCH (08:16)
[2020-09-05] MEDS: pantoprazole 40mg Tablet.DR PO SCH ×2 (08:17→19:33)
[2020-09-05] MEDS: levoTHYROXINE 88mcg tablet PO SCH (08:17)
[2020-09-05] MEDS: fenofibrate 145mg tablet PO SCH (08:17)
[2020-09-05] MEDS: heparin, porcine 5000 units/ml vial SQ SCH ×2 (08:18→19:34)
[2020-09-05] MEDS: magnesium Cl slow-release 64mg tablet PO PRN (08:19)
[2020-09-05] MEDS: K and/or MAG REPLACEMENT MC SCH ×2 (08:26→20:00)
--- NOTE | 2020-09-05 14:20 | NUR ---
DM Consult: Pt A1C 7.7; appropriate given geriatric age. To f/u 09/09 for initial assessment. Addendum: 09/05/20 at [address] Amended: Links added.
[2020-09-05] MEDS: amiodarone 200mg tablet PO SCH ×2 (14:58→21:46)
[2020-09-05 16:35] LABS: ALANINE AMINOTRANSFERASE 26 U/L (12-78); ALBUMIN 3.3 G/DL (3.4-5.0); ALBUMIN/GLOBULIN RATIO 0.8 (1.1-1.5); ALKALINE PHOSPHATASE 38 IU/L (46-116); ASPARTATE AMINO TRANSFERASE 22 U/L (10-37); BILIRUBIN,DIRECT 0.2 MG/DL (0-0.3); BILIRUBIN,TOTAL 0.4 MG/DL (0.1-1.0); POTASSIUM 5.3 MMOL/L (3.5-5.1); TOTAL PROTEIN 7.3 G/DL (6.4-8.2)
[2020-09-05] MEDS: losartan 25mg tablet PO SCH (16:35)
--- NOTE | 2020-09-05 18:09 | NUR ---
Problems reprioritized. Patient report given, questions answered & plan of care reviewed with ADAM. FRANCOIS
--- NOTE | 2020-09-05 18:24 | NUR ---
Patient in room PCU 3026. I have received report from Miguelito ANDERSEN and had the opportunity to ask questions and assume patient care.
[2020-09-05] MEDS: insulin glargine (Lantus) pen - multi-dose SQ SCH (21:00)
[2020-09-06 02:00] VITALS: BP 143/52
[2020-09-06] MEDS: magnesium Cl slow-release 64mg tablet PO PRN ×2 (03:49→08:29)
[2020-09-06 06:00] VITALS: BP 163/50
[2020-09-06 06:02] LABS: ALANINE AMINOTRANSFERASE 25 U/L (12-78); ALBUMIN 3.3 G/DL (3.4-5.0); ALBUMIN/GLOBULIN RATIO 0.9 (1.1-1.5); ALKALINE PHOSPHATASE 33 IU/L (46-116); ANION GAP 9 (8-16); ASPARTATE AMINO TRANSFERASE 21 U/L (10-37); BILIRUBIN,TOTAL 0.6 MG/DL (0.1-1.0); BLOOD UREA NITROGEN 38 MG/DL (7-18); BUN/CREATININE RATIO 17.6 (6.6-38.0); CALCIUM 9.7 MG/DL (8.5-10.1); CHLORIDE 103 MMOL/L (99-107); CREATININE 2.16 MG/DL (0.40-0.90); GLUCOSE 143 MG/DL (70-104); MAGNESIUM 1.6 MG/DL (1.5-2.4); PHOSPHORUS 4.3 MG/DL (2.3-4.5); POTASSIUM 4.3 MMOL/L (3.5-5.1); SODIUM 140 MMOL/L (135-145); TOTAL PROTEIN 7.1 G/DL (6.4-8.2); eGFR 22 ML/MIN
[2020-09-06 06:13] LABS: HEMATOCRIT 32.7 % (35.0-45.0); HEMOGLOBIN 10.8 g/dl (12.0-16.0); MEAN CORPUSCULAR HEMOGLOBIN 27.4 PG (27.0-31.0); MEAN CORPUSCULAR HGB CONC 33.1 g/dL (33.0-36.5)
[2020-09-06 06:15] LABS: MEAN CORPUSCULAR VOLUME 82.8 FL (78-98); MEAN PLATELET VOLUME 8.5 FL (7.4-10.4); PLATELET COUNT 314 X10'3 (140-440); RED BLOOD COUNT 3.96 X10'6 (4.20-5.60); RED CELL DISTRIBUTION WIDTH 14.5 % (11.5-14.5); WHITE BLOOD COUNT 6.6 X10'3 (4.5-11.0)
--- NOTE | 2020-09-06 06:33 | NUR ---
Patient in room PCU 3026. I have received report from NATHALY WHITE and had the opportunity to ask questions and assume patient care.
--- NOTE | 2020-09-06 06:37 | NUR ---
Problems reprioritized. Patient report given, questions answered & plan of care reviewed with Miguelito RN.
[2020-09-06 07:15] LABS: TOTAL CELLS COUNTED 100
[2020-09-06 07:16] LABS: LARGE PLATELETS FEW
[2020-09-06 07:17] LABS: PLATELET ESTIMATE NORMAL
[2020-09-06] MEDS: SACCHAROMYCES BOULARDII 250 MG PO SCH (08:00)
[2020-09-06] MEDS: furosemide 10 MG/1 ML 10ml inj IV SCH (08:24)
[2020-09-06] MEDS: K and/or MAG REPLACEMENT MC SCH (08:24)
[2020-09-06] MEDS: aspirin 81mg tab.chew PO SCH (08:24)
[2020-09-06] MEDS: carVEDilol 12.5mg tablet PO SCH (08:25)
[2020-09-06] MEDS: amiodarone 200mg tablet PO SCH (08:25)
[2020-09-06] MEDS: losartan 25mg tablet PO SCH (08:26)
[2020-09-06] MEDS: atorvastatin 10mg tablet PO SCH (08:26)
[2020-09-06] MEDS: OMEGA-3/DHA/EPA/FISH OIL 1 EACH CAPSULE.DR PO SCH (08:26)
[2020-09-06] MEDS: fenofibrate 145mg tablet PO SCH (08:28)
[2020-09-06] MEDS: levoTHYROXINE 88mcg tablet PO SCH (08:28)
[2020-09-06] MEDS: pantoprazole 40mg Tablet.DR PO SCH (08:28)
[2020-09-06] MEDS: heparin, porcine 5000 units/ml vial SQ SCH (08:30)
[2020-09-06] MEDS ORDERED: AMIO200T67 PO (10:46)
[2020-09-06] MEDS ORDERED: CARV-50 PO (10:46)
[2020-09-06 11:00] VITALS: BP_SYST 123; BP_SYST 148; BP_SYST 154; BP_DIAS 46; BP_DIAS 49; BP_DIAS 52
--- NOTE | 2020-09-06 12:01 | NUR ---
PAGER ID: [phone] MESSAGE: DR. STEWART, [age]Y/MARQUEZ, ORTHOSTATICS:SUPINE:154/49 HR70, SIT:148/46 HR71. STAND:123/52 HR74. OTTONIEL [id number]. FTI
[2020-09-06] MEDS ORDERED: lactobacillus rhamnosus 10,000 MMU CELLS/CAPSULE PO SCH (20:00)
== END 2020-09-06 14:35 | disposition home or self-care (01) | DRG 315 ==
LOC: ER 13:45 → ED HOLD 17:02 → PCU 3S 19:08
PROVIDERS: ADMIT Family Medicine; ATTEND Family Medicine
PROC: 4B02XTZ Measurement of Cardiac Defibrillator, External Approach (ICD-10-PCS; principal; 2020-09-05)
DX: T82.198A Other mechanical complication of other cardiac electronic device, initial encounter (principal); I13.0 Hypertensive heart and chronic kidney disease with heart failure and stage 1 through stage 4 chronic kidney disease, or unspecified chronic kidney disease; I50.22 Chronic systolic (congestive) heart failure; I16.1 Hypertensive emergency; I42.0 Dilated cardiomyopathy; C67.9 Malignant neoplasm of bladder, unspecified; D63.8 Anemia in other chronic diseases classified elsewhere; E03.9 Hypothyroidism, unspecified; E11.22 Type 2 diabetes mellitus with diabetic chronic kidney disease; E78.00 Pure hypercholesterolemia, unspecified; E78.1 Pure hyperglyceridemia; E78.5 Hyperlipidemia, unspecified; I48.0 Paroxysmal atrial fibrillation; K21.9 Gastro-esophageal reflux disease without esophagitis; N18.9 Chronic kidney disease, unspecified; F29 Unspecified psychosis not due to a substance or known physiological condition; F32.9 Major depressive disorder, single episode, unspecified; F41.9 Anxiety disorder, unspecified; M19.90 Unspecified osteoarthritis, unspecified site; Y71.2 Prosthetic and other implants, materials and accessory cardiovascular devices associated with adverse incidents; Z79.84 Long term (current) use of oral hypoglycemic drugs; Z79.890 Hormone replacement therapy; Z79.899 Other long term (current) drug therapy; Z82.49 Family history of ischemic heart disease and other diseases of the circulatory system; Z87.11 Personal history of peptic ulcer disease; Z87.891 Personal history of nicotine dependence; Z95.810 Presence of automatic (implantable) cardiac defibrillator; Z88.2 Allergy status to sulfonamides; Z88.8 Allergy status to other drugs, medicaments and biological substances; Z91.040 Latex allergy status; Z80.9 Family history of malignant neoplasm, unspecified; Z79.82 Long term (current) use of aspirin; Y92.89 Other specified places as the place of occurrence of the external cause
CPT/HCPCS: 36415; 71045; 80053; 80061; 80076; 81003; 82948; 83036; 83735; 83880; 84100; 84132; 84439; 84443; 84484; 85007; 85025; 87081; 93005; 93308; 94760; 96374; 96375; 97116; 97161; 97530; 99285; G0378; J0360; J1644; J1815; J1940

== ENCOUNTER 2020-09-24 09:41 | Emergency (ER) | payer MEDICARE, OTHER ==
[~2020-09-24] VITALS: Ht 157.5 cm; Wt 61.3 kg
[~2020-09-24 09:41] MED LIST changes: -ALPR1TAB2 PO; +AMIO200T67 PO; -APIX5TAB3 PO; +CLON-529 PO; -CLON0.1T PO; +FURO-150 PO; -FURO40TA4 PO; -LISI-600 PO; +NORepinephrine 8 MG in NS 250 ML BAG (32 mcg/ml) IV ONE; -PANT-47 PO; +PANT40TA54 PO; -POTA20TA19 PO; +atropine 0.1mg/ml 10ml syringe ONE; +epiNEPHrine 0.1mg/ml 10ml syringe ONE; -hyDRALAzine tablet PO; +sodium bicarbonate (8.4%) 1 mEq/ml syringe ONE
[2020-09-24 09:44] VITALS: BP 127/103
--- NOTE | 2020-09-24 09:56 | NUR ---
Dr. Sanders at bedside placing central line.
--- NOTE | 2020-09-24 09:57 | NUR ---
Rt at bedside
[2020-09-24] MEDS ORDERED: propofol 1000mg/100ml bottle 100 ML IV PRN (10:20)
[2020-09-24] MEDS ORDERED: aspirin 81mg tab.chew PO ONE (10:25)
--- NOTE | 2020-09-24 10:31 | NUR ---
0957:rhythm change,asystole 0958:cpr started 0959: 1 epi 1000:bicarb 1002: epi puolse check,asystole 1003:cpr 1005:epi given
[2020-09-24] MEDS ORDERED: NORepinephrine 8mg/ 250ml NS 250 ML IV PRN ×2 (10:35→10:40)
[2020-09-24 10:48] LABS: LYMPHOCYTES # (AUTO) 0.8 X10'3 (1.1-4.8); MEAN PLATELET VOLUME 8.5 FL (7.4-10.4); MONOCYTES # (AUTO) 0.3 X10'3 (0-0.9); MONOCYTES % (AUTO) 2.4 % (2-12); WHITE BLOOD COUNT 12.9 X10'3 (4.5-11.0)
[2020-09-24 10:50] LABS: BASOPHILS % (AUTO) 0.2 % (0-1); EOSINOPHILS % (AUTO) 0.3 % (0-6); LYMPHOCYTES % (AUTO) 6.6 % (21-51); MEAN CORPUSCULAR HEMOGLOBIN 27.4 PG (27.0-31.0); MEAN CORPUSCULAR HGB CONC 30.9 g/dL (33.0-36.5); MEAN CORPUSCULAR VOLUME 88.6 FL (78-98); NEUTROPHILS # (AUTO) 11.7 X10'3 (1.8-7.7); NEUTROPHILS % (AUTO) 90.5 % (42-75); PLATELET COUNT 156 X10'3 (140-440); RED BLOOD COUNT 2.39 X10'6 (4.20-5.60); RED CELL DISTRIBUTION WIDTH 14.6 % (11.5-14.5)
--- NOTE | 2020-09-24 10:52 | NUR ---
1008:pulse check-asystole,cpr resumed 1009:pulse check with ultrasound 1mg atropne given 1010:paced rhythm 81
--- NOTE | 2020-09-24 10:53 | NUR ---
1038:patient pea 1042:started pt on levophed 1043: asystole,epi given 1044:pulse check per MD,no pulse 1047:Ultrasound/verified cardiac activity by Dr. Erickson,no organize cardiac contraction atropine 1mg given 1049:PEA. 1049:called time of by Dr. Erickson.
[2020-09-24 10:54] LABS: HEMATOCRIT 21.1 % (35.0-45.0); HEMOGLOBIN 6.5 g/dl (12.0-16.0)
[2020-09-24 11:16] LABS: ALANINE AMINOTRANSFERASE 549 U/L (12-78); ALBUMIN 1.5 G/DL (3.4-5.0); ALBUMIN/GLOBULIN RATIO 0.8 (1.1-1.5); ALKALINE PHOSPHATASE 31 IU/L (46-116); ANION GAP 18 (8-16); BILIRUBIN,TOTAL 0.3 MG/DL (0.1-1.0); BLOOD UREA NITROGEN 44 MG/DL (7-18); BUN/CREATININE RATIO 15.6 (6.6-38.0); CREATININE 2.82 MG/DL (0.40-0.90); GLUCOSE 76 MG/DL (70-104); MAGNESIUM 1.4 MG/DL (1.5-2.4); POTASSIUM 3.6 MMOL/L (3.5-5.1); SODIUM 144 MMOL/L (135-145); TOTAL PROTEIN 3.4 G/DL (6.4-8.2); eGFR 16 ML/MIN
[2020-09-24 11:22] LABS: ASPARTATE AMINO TRANSFERASE 1175 U/L (10-37); CALCIUM 5.4 MG/DL (8.5-10.1); CHLORIDE 113 MMOL/L (99-107); TOTAL CARBON DIOXIDE 13.3 MMOL/L (24-32)
--- NOTE | 2020-09-24 11:29 | NUR ---
called building performance specialist's office spoke to Deputy Mueller.
--- NOTE | 2020-09-24 11:49 | NUR ---
Called organ donor spoke with Keenan.ref number: [phone]
--- NOTE | 2020-09-24 11:55 | NUR ---
1145:called number [phone],(Isatu Carter),spouse answered and said that Isatu is working today and that he's getting a bad dental office receptionist over the phone and then hung up. 1146:called the same number,line is busy.
--- NOTE | 2020-09-24 11:59 | NUR ---
called [facility] per domestic partner.Spoke to Rola,made aware that unable to contact Isatu Carter and that she is the closest family member in patient's record.Given her Isatu's contact number.
--- NOTE | 2020-09-24 12:37 | NUR ---
CALLED [place] [phone],MADE AWARE THAT PATIENT IS GOING TO [facility] [place]. MORTUARY ETA 20 MINUTES.
--- NOTE | 2020-09-24 12:55 | NUR ---
transportation here to take patient to mortuary.
== END 2020-09-24 19:48 | disposition expired ==
LOC: ER 09:41
DX: I46.9 Cardiac arrest, cause unspecified (principal); I10 Essential (primary) hypertension; E78.00 Pure hypercholesterolemia, unspecified; E11.9 Type 2 diabetes mellitus without complications; E03.9 Hypothyroidism, unspecified; F29 Unspecified psychosis not due to a substance or known physiological condition; Z88.2 Allergy status to sulfonamides; Z91.040 Latex allergy status; Z88.8 Allergy status to other drugs, medicaments and biological substances; Z79.899 Other long term (current) drug therapy
CPT/HCPCS: 36556; 71045; 80053; 83735; 83880; 84484; 85025; 92950; 99285; J0171; J0461; 94002; 94640; 94760; 99283